=== PATIENT | female | born 1935 | race Caucasian/White ===

== ENCOUNTER 2016-03-23 13:40 | Emergency (ER) | payer MEDICARE, MEDICAID ==
[~2016-03-23] VITALS: Ht 167.6 cm; Wt 52.3 kg
[2016-03-23 13:46] VITALS: Ht 167.6 cm; Wt 52.3 kg
[2016-03-23] MEDS ORDERED: LORAZEPAM 2 MG INJ IM ONE (14:00)
[2016-03-23] MEDS ORDERED: HALOPERIDOL 5 MG INJ IM ONE (14:00)
[2016-03-23] MEDS ORDERED: ONDANSETRON (ODT) 4 MG TAB ODT STA (14:17)
[2016-03-23] MEDS ORDERED: HYDROCODONE/APAP (5/325) TAB PO ONE (14:30)
--- NOTE | 2016-03-23 15:11 | RADRPT ---
PROCEDURE: XR Right Femur. CLINICAL INDICATION: Right leg pain. TECHNIQUE: AP and lateral views of the right femur were performed. COMPARISON: None. FINDINGS: There is no fracture or dislocation. The soft tissues are normal. There are degenerative changes of the right hip with joint space narrowing, osteophytes, subarticula r sclerosis, and deformity. 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 There are also degenerative changes of the right knee joint with joint space narrowing and osteophytes. There is no lytic or blastic lesion. There is diffuse osteopenia. IMPRESSION: 1. 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 2. Moderate degenerative changes of the right knee. 3. Diffuse osteopenia. RPTAT: QQ .Carlos Marti MD, MD Date Time Electronically viewed and signed by .Carlos Marti MD, on 03/23/2016 15:11 .R/
--- NOTE | 2016-03-23 15:12 | RADRPT ---
PROCEDURE: Right knee radiographs. CLINICAL INDICATION: Right knee pain. TECHNIQUE: Three views. Weight bearing. Frontal, lateral, and patellar view. COMPARISON: No prior studies are available for comparison. FINDINGS: There is no fracture or dislocation. The soft tissues are normal. There are degenerative changes with osteophytes arising from all 3 joint compartment margins. There is no lytic or blastic lesion. There is diffuse osteopenia. IMPRESSION: 1. Degenerative changes of the right knee. 2. Diffuse osteopenia. 3. No acute abnormality. RPTAT: QQ .Carlos Marti MD, MD Date Time Electronically viewed and signed by .Carlos Marti MD, MD on 03/23/2016 15:12 .R/
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
[2016-03-23] MEDS ORDERED: HYDR-906 PO (15:57)
[2016-03-23] MEDS ORDERED: ETOD300C26 PO (15:57)
[2016-03-23] MEDS ORDERED: ONDA4TAB8 PO (15:58)
[2016-03-24 10:24] VITALS: BP 148/74; PULSE 74; RESP 18; TEMP 98.5
== END 2016-03-24 18:04 | disposition home or self-care (01) ==
LOC: E/R 13:40
DX: M79.604 Pain in right leg (principal); R40.2242 Coma scale, best verbal response, confused conversation, at arrival to emergency department; R40.2362 Coma scale, best motor response, obeys commands, at arrival to emergency department; R40.2142 Coma scale, eyes open, spontaneous, at arrival to emergency department
CPT/HCPCS: 73550; 73562; 96372; 99284; J1630; J2060